=== PATIENT | female | born 1955 | race Caucasian/White ===

== ENCOUNTER 2020-06-29 09:38 | Outpatient (REF) | payer OTHER, SELFPAY ==
--- NOTE | ~2020-06-29 | MM_ITS ---
EXAMINATION: MM SCREENING DIGITAL BREAST TOMOSYNTHESIS, BILATERAL CLINICAL INFORMATION: Screening. Asymptomatic. The lifetime risk of breast cancer based on the Tyrer-Cuzick Model is 8%. COMPARISON: Mammography: 04/07/2019, 04/04/2018, 08/22/2015 TECHNIQUE: Digital breast tomosynthesis is performed in both the craniocaudal and mediolateral oblique views along with computer-aided detection (CAD). Synthesized 2D images are generated from the tomosynthesis. FINDINGS: The breasts are almost entirely fatty (ACR BI-RADS breast composition Category a). Background stromal and fibroglandular densities are stable. There is no developing density. There are no significant masses, abnormal calcifications, or other abnormalities. MM/MM tomosynthesis screening BI IMPRESSION: No mammographic evidence of malignancy. ASSESSMENT: BI-RADS 1: Negative RECOMMENDATION: Routine annual mammography screening. This patient's information was entered into a reminder system with a target due date for their next mammogram.
== END 2020-06-29 09:39 | disposition home or self-care (01) ==
LOC: HO.MAMMO 09:38
PROVIDERS: PCP Internal Medicine; Visit Provider Internal Medicine
DX: Z12.31 Encounter for screening mammogram for malignant neoplasm of breast (principal)
CPT/HCPCS: 77063; 77067

== ENCOUNTER 2021-03-25 12:58 | Emergency (ER) | payer OTHER, SELFPAY ==
--- NOTE | 2021-03-25 | ECG_ITS ---
Test Reason : CHEST PAIN Blood Pressure : / mmHG Vent. Rate : 153 BPM Atrial Rate : 000 BPM P-R Int : 000 ms QRS Dur : 102 ms QT Int : 288 ms P-R-T Axes : 000 063 -03 degrees QTc Int : 459 ms Supraventricular tachycardia Nonspecific ST abnormality Abnormal QRS-T angle, consider primary T wave abnormality Abnormal ECG When compared with ECG of 18-DEC-2015 00:08, Vent. rate has increased BY [address] now depressed in Inferior leads ST now depressed in Anterolateral leads Inverted T waves have replaced nonspecific T wave abnormality in Inferior leads Referred By: Generic ED Physician Electronically Signed By:LIBRA WOOD MD
--- NOTE | 2021-03-25 13:24 | ED_ITS ---
HPI - Arrhythmia/Palpitations General Chief Complaint: General Medical Stated Complaint: Rapid Heart rate Time Seen by Provider: 03/25/21 13:24 Source: patient Mode of arrival: ambulatory Limitations: no limitations History of Present Illness HPI narrative: Patient noticed palpitations that started about 2.5 hours ago, she did notice some shortness of breath MD complaint: rapid heart beat Onset (ago): hour(s) Associated symptoms: shortness of breath Related Data Home Medications Medication Instructions Recorded Confirmed cholecalciferol (vitamin D3) 50 50 mcg PO DAILY 12/11/20 12/11/20 mcg (2,000 unit) capsule Previous Rx's Medication Instructions Recorded albuterol sulfate 90 mcg/actuation 2 puff PO Q6H PRN 30 Days #6.7 g 12/11/20 aerosol inhaler fluticasone 250 mcg-salmeterol 50 1 inh INHALATION Q12H 30 Days #60 12/11/20 mcg/dose blistr powdr for ea inhalation (Advair Diskus) Allergies Allergy/AdvReac Type Severity Reaction Status Date / Time acetaminophen [From TYLENOL] Allergy Unknown HIVES,NAUSEA Verified 12/11/20 09:19 & VOMITING montelukast AdvReac Unknown muscle Verified 12/11/20 09:19 cramps SOY Allergy Mild VOMITING Uncoded 06/17/20 10:09 Review of Systems Constitutional: Constitutional: Reports no additional constitutional complaints Eyes: Eyes: Reports no additional eye complaints ENT: Denies dizziness Cardiovascular: Cardiovascular: Reports no additional cardiovascular complaints Respiratory: Respiratory: Reports as per HPI Gastrointestinal: Gastrointestinal: Reports no additional gastrointestinal complaints Genitourinary: Genitourinary: Reports no additional female genitourinary complaints Musculoskeletal: Musculoskeletal: Reports no additional musculoskeletal complaints Integumentary/Breasts: Skin/Breast: Denies rash Neurologic: Reports system reviewed and no additional complaints, except as d ocumented, Denies dizziness and Denies Sensory deficit (Neuro) Psychiatric: Psychiatric: Denies anxiety PMFSH Past Medical History Medical History Asthma Surgical History History of colonoscopy History of laparoscopic cholecystectomy Family History Family History Father Bladder cancer Mother Cancer Brother In good health Sister In good health Son In good health Social History Social History Housing: House Patient Tobacco Use Status: Never used Tobacco Second Hand Smoke Exposure: No Advance Directives: No Advance Directives Information Provided: No Patient : No service: No Current occupational status: other Physical Exam Vital Signs: Vital Signs: Last Vital Signs Temp 98 F 03/25/21 13:28 Pulse 88 03/25/21 14:25 Resp 18 03/25/21 14:25 BP 146/89 H 03/25/21 14:25 Pulse Ox 98 03/25/21 14:25 BMI result Body Mass Index 32.3 Const: General: healthy appearing Nutritional Appearance: average body habitus Orientation/consciousness: oriented to person and patient oriented x3 Limitations: no limitations HENMT: Head: Yes normal to inspection Ears: external ears normal General nose exam: Normal external nose present Mouth: Normal oral and palatal mucosa present and oropharynx normal Throat: Yes posterior oropharynx normal Eyes: General: appearance normal, both eyes and all related structures Neck: Other: supple Neck: Yes normal visual inspection Chest: Chest palpation & inspection: normal inspection of the chest Resp: Auscultation: clear to auscultation bilaterally Cardio: Other: severe tachycardia Jugular venous distension: no JVD GI: Inspection: Yes normal to inspection Palpation (GI): Soft to palpation, nontender and No hepatosplenomegaly present Auscultation: normal bowel sounds : General: Yes no CVA tenderness Back/Spine/Pelvis: Back: no CVA tenderness Skin: General skin exam: no rashes or lesions noted Neuro: General: oriented to person and patient oriented x3 Cranial nerves: Yes CN's II-XII intact bilaterally Motor exam (neuro): 5/5 motor strength present throughout Sensory Exam: No Sensory deficit (Neuro) Extrem: General: Yes normal to inspection Psych: Appearance: grossly normal Course Reevaluation(s) Reevaluation #1: patient has remained stable after cardioversion, discussed use of betablocker but she would prefer not to at this time Time: 15:25 Reevaluation #2: I spent 30 minutes of critical care, with interventions, assessments, speaking to patient, consultants, and family. Time: 15:26 MDM - Arrhythmia/Palpitations Lab Data Result diagrams: 12/14/21 13:39 03/25/21 13:39 Labs: Lab Results 03/25/21 03/25/21 03/25/21 Range/Units 13:39 13:39 13:39 WBC 9.2 (4.8-10.8) X10*3/uL RBC 4.88 (4.20-5.50) X10*6/uL Hgb 14.3 (12.0-16.0) g/dl Hct 42.9 (37.0-47.0) % MCV 87.9 (80.0-98.0) fL MCH 29.3 (27.0-33.0) pg MCHC 33.3 (31.0-35.0) g/dl RDW 12.7 (11.0-16.0) % Plt Count 266 (160-400) X10*3/uL MPV 9.4 (9.4-12.3) fL Immature Gran % (Auto) 0.4 (0.0-0.4) % Neut % (Auto) 54.6 (45-73) % Lymph % (Auto) 32.1 (20-40) % [place] % (Auto) 6.7 (2-11) % Eos % (Auto) 5.7 H (0-4) % Baso % (Auto) 0.5 (0-2) % Lymph # (Auto) 2.9 (1.2-4.9) X10*3/uL [place] # (Auto) 0.6 (0.1-1.2) X10*3/uL Eos # (Auto) 0.5 H (0.0-0.4) X10*3/uL Baso # (Auto) 0.1 (0.0-0.2) X10*3/uL Abs Immat Gran (auto) 0.04 H (0.00-0.03) X10*3/uL Absolute Neuts (auto) 5.0 (2.0-8.3) x10*3/uL Absolute Nucleated RBC 0.000 (0.0-0.012) X10*3/uL Nucleated RBC % (auto) 0.0 (0.0-0.2) /100WBC Sodium 141 (135-145) mmol/L Potassium 3.8 (3.3-5.1) mmol/L Chloride 102 (96-108) mmol/L Carbon Dioxide 29 (22-29) mmol/L Anion Gap 14 (12-20) BUN 18 H (9-16) mg/dL Creatinine 1.04 (0.5-1.4) mg/dL Estim Creat Clear Calc 62.8 Estimated GFR 54 Random Glucose 126 H (60-115) mg/dL Calcium 9.7 (8.4-10.2) mg/dL Troponin I High Sens 9.9 (<3.5-17.0) ng/L TSH 1.02 (0.32-4.0) uIU/mL Procedures Procedure Narrative Procedure Narrative: cardioversion with adenosine Discharge Plan Discharge Clinical Impression: Supraventricular tachycardia Patient Disposition: Home, Self-Care Instructions: Supraventricular Tachycardia (ED) Prescriptions: No Action cholecalciferol (vitamin D3) 50 mcg (2,000 unit) capsule 50 mcg PO DAILY RF: 0 fluticasone propion-salmeterol [Advair Diskus] 250-50 mcg/dose blister with device 1 inh inhalation Q12H 30 Days Qty: 60 RF: 2 albuterol sulfate 90 mcg/actuation HFA aerosol inhaler 2 puff PO Q6H PRN (Reason: shortness of breath or wheezing) 30 Days Qty: 6.7 RF: 2 Referrals: Vern Acuna, SOUND TECHNICIAN-BC [Primary Care Provider] - 5 days
--- NOTE | 2021-03-25 13:26 | ECG_ITS ---
Test Reason : SVT Blood Pressure : / mmHG Vent. Rate : 087 BPM Atrial Rate : 087 BPM P-R Int : 150 ms QRS Dur : 088 ms QT Int : 350 ms P-R-T Axes : 069 050 017 degrees QTc Int : 421 ms Normal sinus rhythm Normal ECG When compared with ECG of 25-MAR-2021 13:09, Normal sinus rhythm has replaced Supraventricular tachycardia Vent. rate has decreased BY [address] no longer depressed in Anterolateral leads T wave inversion less evident in Inferior leads Referred By: Aniket Cortez Electronically Signed By:LIBRA WOOD MD
[2021-03-25 13:28] VITALS: BP 184/86; PULSE 167; RESP 20; TEMP 36.6; O2SAT 98; BMI 32.3
[2021-03-25 13:44] LABS: MANUAL DIFF FLAG NO
[2021-03-25 13:47] VITALS: BP 168/94; PULSE 90
[2021-03-25] MEDS: Metoprolol Tartrate 5 MG/5 ML VIAL IVPUSH (13:47)
--- NOTE | 2021-03-25 13:48 | PC.NURSE ---
PT TO BED AFTER EKG IN WAITING ROOM. DR SOUZA TO BEDSIDE. PT AWAKE, ALERT AND ORIENTED X 3. NEUROS INTACT. SKIN PINK WARM AND DRY. RESP UNLABORED. SVT 160S-180S. DENIES CP/SOB. PLAN IS FOR ADENOSINE. IV PLACED, EKG OBTAINED, PLACED ON GALLERY DIRECTOR. MEDICATED WITH ADENOSINE ORDERED. LOPRESSOR IV GIVEN. DR SOUZA AWARE OF HR OF 98. PROCEED WITH LOPRESSOR ORDERED. PT RESPONDED TO LOPRESSOR, HR 88 - NSR
[2021-03-25 13:49] LABS: Basophils Absolute Auto 0.1 X10*3/uL (0.0-0.2); Basophils Percent Auto 0.5 % (0-2); Eosinophils Absolute Auto 0.5 X10*3/uL (0.0-0.4); Eosinophils Percent Auto 5.7 % (0-4); Hematocrit 42.9 % (37.0-47.0); Hemoglobin 14.3 g/dl (12.0-16.0); Imm Gran Abs Auto 0.04 X10*3/uL (0.00-0.03); Imm Gran Pct Auto 0.4 % (0.0-0.4); Lymphocytes Absolute Auto 2.9 X10*3/uL (1.2-4.9); Lymphocytes Percent Auto 32.1 % (20-40); Mean Corpuscular HGB Conc 33.3 g/dl (31.0-35.0); Mean Corpuscular Hemoglobin 29.3 pg (27.0-33.0); Mean Corpuscular Volume 87.9 fL (80.0-98.0); Mean Platelet Volume 9.4 fL (9.4-12.3); Monocytes Absolute Auto 0.6 X10*3/uL (0.1-1.2); Monocytes Percent Auto 6.7 % (2-11); Neutrophils Percent Auto 54.6 % (45-73); Platelet Count 266 X10*3/uL (160-400); Red Blood Count 4.88 X10*6/uL (4.20-5.50); Red Cell Distribution Width 12.7 % (11.0-16.0); White Blood Count 9.2 X10*3/uL (4.8-10.8)
[2021-03-25 14:01] LABS: Anion Gap 14 (12-20); Blood Urea Nitrogen 18 mg/dL (9-16); Calcium 9.7 mg/dL (8.4-10.2); Carbon Dioxide 29 mmol/L (22-29); Chloride 102 mmol/L (96-108); Creatinine Clr Calc Pharmacy 62.8; Estimated Glomerular Filt Rate 54; Glucose Random 126 mg/dL (60-115); Potassium 3.8 mmol/L (3.3-5.1); Sodium 141 mmol/L (135-145)
[2021-03-25 14:08] LABS: Troponin-I High Sensitivity 9.9 ng/L (<3.5-17.0)
[2021-03-25 14:24] LABS: TSH reflex Free T4 1.02 uIU/mL (0.32-4.0)
[2021-03-25 14:25] VITALS: BP 146/89; PULSE 88; RESP 18; O2SAT 98
[2021-03-25 15:50] VITALS: BP 147/82; PULSE 87; RESP 16; O2SAT 97
== END 2021-03-25 15:56 | disposition home or self-care (01) ==
PROVIDERS: Emergency Provider Emergency Medicine; PCP Nurse Practitioner Family
DX: I47.1 Supraventricular tachycardia (principal); R06.02 Shortness of breath; J45.909 Unspecified asthma, uncomplicated
CPT/HCPCS: 36415; 80048; 84443; 84484; 85025; 93005; 96374; 96375; 99284; J0153

== ENCOUNTER 2021-07-01 09:19 | Outpatient (REF) | payer OTHER, SELFPAY ==
--- NOTE | ~2021-07-01 | MM_ITS ---
EXAMINATION: MM SCREENING DIGITAL BREAST TOMOSYNTHESIS, BILATERAL CLINICAL INFORMATION: Screening. Asymptomatic. The lifetime risk of breast cancer based on the Tyrer-Cuzick Model is 4%. COMPARISON: Mammography: June 29, 2020 and studies dating back to March 12, 2000 TECHNIQUE: Digital breast tomosynthesis is performed in both the craniocaudal and mediolateral oblique views along with computer-aided detection (CAD). Synthesized 2D images are generated from the tomosynthesis. FINDINGS: The breasts are almost entirely fatty (ACR BI-RADS breast composition Category a). There are no significant masses, abnormal calcifications, or other abnormalities. MM/MM tomosynthesis screening BI IMPRESSION: There are no significant changes from prior study. ASSESSMENT: BI-RADS 1: Negative RECOMMENDATION: Routine annual mammography screening. This patient's information was entered into a reminder system with a target due date for their next mammogram.
== END 2021-07-01 09:20 | disposition home or self-care (01) ==
LOC: HO.MAMMO 09:19
PROVIDERS: PCP Nurse Practitioner Family; Visit Provider Internal Medicine
DX: Z12.31 Encounter for screening mammogram for malignant neoplasm of breast (principal)
CPT/HCPCS: 77063; 77067

== ENCOUNTER 2021-07-25 12:52 | Outpatient (REF) | payer OTHER, SELFPAY ==
--- NOTE | ~2021-07-25 | MM_ITS ---
EXAMINATION: BONE DENSITOMETRY CLINICAL INDICATION: History of osteopenia. Other specified disorders of bone density and structure. Postmenopausal. COMPARISON: Baseline BD dated 03/24/2018. TECHNIQUE: Using a [employer] DXA System (software version: 13.1) manufactured by [employer], dual-energy x-ray absorptiometry was performed of the lumbar spine and left hip. The images are of good technical quality. Summary results are attached. FINDINGS: AP SPINE L1-L4: Current: BMD 1.476 g/cm2, Z-score 2.9, T-score 2.5, normal, 4.5% increase from baseline (<5% change is not significant). Baseline: BMD 1.413 g/cm2. LEFT FEMUR, NECK: Current: BMD 0.892 g/cm2, Z-score -0.3, T-score -1.0, normal. Baseline: BMD 0.853 g/cm2. LEFT FEMUR, TOTAL: Current: BMD 1.011 g/cm2, Z-score 0.4, T-score 0.0, normal, 1.9% increase from baseline (<5% change is not significant). Baseline: BMD 0.992 g/cm2. IDENTIFIED RISK FACTORS: Menopause. HISTORY OF FRACTURE: None listed. MEDICATIONS: Vitamin D. MM/XR DEXA axial skeleton IMPRESSION: 1. DIAGNOSIS: Normal bone density based on the lowest T-score value of -1.0 in the femoral neck applying World Health Organization criteria. 2. 10-YEAR FRACTURE RISK PREDICTION, FRAX: According to the guidelines, FRAX calculation should only be performed on patients in the osteopenia bone density category. Therefore, FRAX was not performed on this patient. 3. Treatment Recommendations: NOF guidelines recommend consideration for treatment in postmenopausal women and men age 50 and older presenting with the following: -A hip or vertebral (clinical or morphometric) fracture. -T-score less than or equal to -2.5 at the femoral neck or spine after appropriate evaluation to exclude secondary causes. -Low bone mass at the hip or spine and a 10-year fracture probability by FRAX of greater than or equal to 3% for hip fracture or greater than or equal to 20% for major osteoporotic fracture based on the [place] adapted WHO algorithm. 4. Other Recommendations: All treatment decisions require clinical judgment and consideration of individual patient factors, including patient preferences, comorbidities, previous drug use, risk factors not captured in the FRAX model (e.g. frailty, falls, vitamin D deficiency, increased bone turnover, interval significant decline in bone density) and possible under or overestimation of fracture risk by FRAX. FUTURE SCAN RECOMMENDATION: People with diagnosed cases of osteoporosis or at high risk for fracture should have regular bone mineral density tests. For patients eligible for Medicare, routine testing is allowed once every 2 years. The testing frequency can be increased to one year for patients who have rapidly progressing disease, those who are receiving or discontinuing medical therapy to restore bone mass, or have additional risk factors.
== END 2021-07-25 12:53 | disposition home or self-care (01) ==
LOC: HO.MAMMO 12:52
PROVIDERS: Visit Provider Nurse Practitioner Family
DX: Z13.820 Encounter for screening for osteoporosis (principal); Z78.0 Asymptomatic menopausal state
CPT/HCPCS: 77080

== ENCOUNTER 2021-10-27 10:39 | Outpatient (REF) | payer OTHER, SELFPAY ==
[2021-10-31 09:07] LABS: HPV mRNA E6/E7 rflx Not Detected (Not Detected)
== END 2021-10-27 10:40 | disposition home or self-care (01) ==
LOC: HO.LAB 10:39
PROVIDERS: Visit Provider Advanced Practice Midwife
DX: Z01.419 Encounter for gynecological examination (general) (routine) without abnormal findings (principal); Z11.51 Encounter for screening for human papillomavirus (HPV)
CPT/HCPCS: 87624; 88142

== ENCOUNTER 2021-11-20 09:19 | Outpatient (REF) | payer OTHER, SELFPAY | END 2021-11-20 09:20 | disposition home or self-care (01) | LOC: HO.LAB 09:19 | PROVIDERS: PCP Nurse Practitioner Family; Visit Provider Obstetrics & Gynecology | DX: N88.9 Noninflammatory disorder of cervix uteri, unspecified (principal) | CPT/HCPCS: 57454; 88305 ==

== ENCOUNTER 2022-07-07 09:15 | Outpatient (REF) | payer OTHER, SELFPAY ==
--- NOTE | ~2022-07-07 | MM_ITS ---
EXAMINATION: MM SCREENING DIGITAL BREAST TOMOSYNTHESIS, BILATERAL CLINICAL INFORMATION: Screening. Asymptomatic. The lifetime risk of breast cancer based on the Tyrer-Cuzick Model is 6.9%. COMPARISON: Mammography: July 01, 2021 and studies dating back to March 12, 2014 TECHNIQUE: Digital breast tomosynthesis is performed in both the craniocaudal and mediolateral oblique views along with computer-aided detection (CAD). Synthesized 2D images are generated from the tomosynthesis. FINDINGS: The breasts are almost entirely fatty (ACR BI-RADS breast composition Category a). There are no significant masses, abnormal calcifications, or other abnormalities. MM/MM tomosynthesis screening BI IMPRESSION: No significant changes ASSESSMENT: BI-RADS 1: Negative RECOMMENDATION: Routine annual mammography screening. This patient's information was entered into a reminder system with a target due date for their next mammogram.
== END 2022-07-07 09:16 | disposition home or self-care (01) ==
LOC: HO.MAMMO 09:15
PROVIDERS: PCP Nurse Practitioner Family; Visit Provider Nurse Practitioner Family
DX: Z12.31 Encounter for screening mammogram for malignant neoplasm of breast (principal)
CPT/HCPCS: 77063; 77067

== ENCOUNTER 2022-12-01 10:38 | Outpatient (AMB) | payer OTHER, SELFPAY ==
--- NOTE | 2022-12-01 10:50 | MHC.OFFVIS ---
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 Scribed for ALLEY Rouse by Jayna Belle medical corps officer, on 12/01/2022 at 11:08 am EST. Transformer Assembly Supervisor Required: No Information Interpreted: non-clinical & clinical Licensed Pesticide Applicator: Licensed Pesticide Applicator Present ([place]) Allergies acetaminophen [From TYLENOL] Allergy (Unknown, Verified 12/01/22 10:54) HIVES,NAUSEA & VOMITING montelukast Adverse Reaction (Unknown, Verified 12/01/22 10:54) muscle cramps SOY Allergy (Mild, Uncoded 12/01/22 10:54) VOMITING Is last menstrual period known: No Post menopausal: Yes Patient : No HPI HPI Comments History of Present Illness Details She is a postmenopausal woman presenting for annual exam. Doing well with no tube backer concerns. Patient admits she tries to eat a healthy diet including Calcium and Vitamin D. She stays active with exercise. Currently sexually active. Denies vaginal itching and irritation. STD screening offered; she accepts. Denies family hx of breast, colon and ovarian cancer. Last pap smear 10/27/21. Last mammogram 07/07/22 UTD on colonoscopy. [facility] Medical History Asthma Supraventricular tachycardia White coat syndrome with high blood pressure but without hypertension Surgical History H/O cervical polypectomy History of colonoscopy History of laparoscopic cholecystectomy Family History Father Bladder cancer Mother No problems noted. 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 Current occupational exposures/hazards: No Cognitive needs: No Hearing needs: No Vision needs: No Female Reproductive History Menstrual Age of Menarche: 13 control method: none Total pregnancies: 3 Full term: 3 Number of Living Children: 3 Date of last pap smear: 10/27/21 (neg pap and hpv) Date of Mammogram: 07/07/22 ([facility] 1) Physical Exam Vital Signs: Last Vital Signs BP 132/82 12/01/22 10:51 BMI result Body Mass Index 31.6 Const General: cooperative, healthy appearing, no acute distress, well developed and alert Orientation/consciousness: patient oriented x3 HEENT Head: Yes normal to inspection Eyes General: appearance normal, both eyes and all related structures Neck Neck: Yes normal visual inspection Thyroid: Thyroid normal Chest Chest palpation & inspection: normal inspection of the chest Breast/axilla inspection: normal inspection of the breasts (no puckering, dimpling, peau de orange, retraction, discharge, masses) Breast/axilla palpation: normal palpation of the breasts Resp Effort & Inspection: normal respiratory effort GI Inspection: Yes normal to inspection Palpation (GI): Soft to palpation (to palpation) Rectal Exam - Female: deferred General: Yes bladder normal to inspection External Female Exam: normal external appearance and normal appearance of the urethra Speculum Exam - Vagina: normal appearance of the vagina, normal palpation and normal vaginal discharge Speculum Exam - Cervix: normal appearance of the cervix and normal palpation Bimanual exam- vagina & uterus: normal palpation and normal palpation Bimanual Exam- Adnexa, other: normal adnexae and no masses Skin General skin exam: no rashes or lesions noted Neuro General: patient oriented x3 Cognition (Neuro): normal cognition Extrem General: Yes normal to inspection Psych Attitude: cooperative Thought process: Normal thought process present Assessment & Plan Assessment & Plan (1) Encounter for well woman exam: Code(s): Z01.419 - Encounter for gynecological examination (general) (routine) without abnormal findings Plan: Discussed: Current recommendations for pap smears per ASCCP guidelines. Breast awareness and periodic self breast exams. Encouraged yearly mammograms. Maintaining a healthy lifestyle including a well balanced diet including Calcium and Vitamin D and routine exercise. Contact office with any PMB. All of her questions and concerns were addressed to the best of my ability RTO in 1 year for AG. Coding Level of Care Code Est Pt Prev Care >65y(23076) Diagnoses Encounter for well woman exam Z01.419
[2022-12-01 10:51] VITALS: BP 132/82; BMI 31.6
== END 2022-12-01 11:19 | disposition home or self-care (01) ==
LOC: HO.HWS 10:38
PROVIDERS: PCP Nurse Practitioner Family; Visit Provider Advanced Practice Midwife
DX: Z01.419 Encounter for gynecological examination (general) (routine) without abnormal findings (principal)
CPT/HCPCS: 99397

== ENCOUNTER → 2022-12-01 10:38 | Outpatient (BNVA) | payer OTHER, MEDICARE, SELFPAY | PROVIDERS: PCP Nurse Practitioner Family; Visit Provider Advanced Practice Midwife ==

== ENCOUNTER 2023-04-07 10:19 | Outpatient (AMB) | payer OTHER, SELFPAY ==
--- NOTE | 2023-04-07 10:20 | MHC.PC.OV ---
Vital Signs 04/07/23 10:23 04/07/23 11:27 Height 5 ft 6 in Weight 195 lb BMI 31.5 BP 140/82 H 128/70 Blood Pressure Location Rt brachial Position Sitting Pulse 81 Pulse Source Pulse Oximeter Pulse Oximetry (%) 98 Oxygen Delivery Method Room Air Intake Visit Reasons: routine annual physical Intake Note: Patient here for physical exam. no new issues or concerns. Mammo is booked for some time next month. last pap: 09/2022 at [facility] Allergies acetaminophen [From TYLENOL] Allergy (Unknown, Verified 04/07/23 10:23) HIVES,NAUSEA & VOMITING montelukast Adverse Reaction (Unknown, Verified 04/07/23 10:23) muscle cramps SOY Allergy (Mild, Uncoded 04/07/23 10:23) VOMITING Medication List - Last Reconciled 04/07/23 by KEITH Arreguin-TRISHA albuterol sulfate 90 mcg/actuation 2 puffs PO Q6H PRN 30 days cholecalciferol (vitamin D3) 50 mcg PO DAILY magnesium 250 mg PO DAILY Tobacco use date assessed: 04/07/23 Fall risk assessment: No Falls in past year Last assessed Fall Risk: 04/07/23 Dental Screening Dental Screen Date: 04/07/23 Did you have a dental visit in the last 12 months?: Yes Did you have a dental problem in the last 6 months where you did not have access to dental care?: No Was dental information given to patient?: Patient has dentist HPI routine annual physical HPI Details Pt is here for a PE. Will order labs. Colon screen is up to date. Mammo is up to date. 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 Bone density is up to date. COUNTS INCLUDE 234 BEDS AT THE [facility] Medical History Asthma Supraventricular tachycardia White coat syndrome with high blood pressure but without hypertension Surgical History H/O cervical polypectomy History of colonoscopy History of laparoscopic cholecystectomy Family History Father Bladder cancer Mother No problems noted. 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 How often do you have a drink containing alcohol?: Never 3. How often do you have six or more drinks on one occasion?: Never Total Score: 0 Score Reviewed/Action Taken: No RICHARD-7 AMB Questionnaire RICHARD-7 Date RICHARD - 7 assessed: 06/24/21 Source: Developed by Drs. Prem Dinh, Luba Ahmadi, Vin Hurd and colleagues, with an educational adore from [employer]. Review of Systems Const Denies chills and Denies fever(s) Eyes Denies blurry vision ENT Denies vertigo, Denies dizziness and Denies sore throat Card Denies chest pain at rest, Denies chest pain with activity, Denies diaphoresis, Denies dyspnea and Denies dyspnea on exertion Resp Denies cough, Denies dyspnea, Denies dyspnea on exertion and Denies wheezing GI Denies abdominal pain, Denies melena, Denies hematochezia, Denies constipation, Denies diarrhea and Denies loose stools Denies hematuria Musc Denies numbness and Denies tingling Skin/Breast Denies lesions Neuro Denies vertigo, Denies dizziness, Denies numbness and Denies tingling Psych Denies anxiety, Denies depression, Denies homicidal ideation, Denies suicidal ideation and Denies other (substance abuse) Aller/Immun Denies wheezing Physical exam (Primary Care) Vital Signs: Last Vital Signs Pulse 81 04/07/23 10:23 BP 140/82 H 04/07/23 10:23 Pulse Ox 98 04/07/23 10:23 Oxygen Delivery Method Room Air 04/07/23 10:23 BMI result Body Mass Index 31.5 Tobacco/Smoking Status: Tobacco use Status Tobacco use date assessed 04/07/23 04/07/23 10:26 Patient Tobacco Use Status Never used Tobacco 04/07/23 10:23 Thrive Assessment: Date of Thrive Assessment Date Thrive assessed 06/24/21 04/07/23 10:23 Const General: cooperative Nutritional Appearance: well nourished Orientation/consciousness: patient oriented x3 HENMT Head: Yes normal to inspection, Yes normocephalic and Yes atraumatic Ears: TM's normal bilaterally Eyes General: appearance normal, both eyes and all related structures Alignment and Position: alignment normal and position normal Neck Neck: Yes normal visual inspection and Yes no lymphadenopathy Thyroid: Thyroid normal Resp Effort & Inspection: normal respiratory effort Auscultation: clear to auscultation bilaterally Cardio Rate: regular rate Rhythm: regular rhythm Heart sounds: S1 normal heart sound present, S2 normal heart sound present and no murmurs GI Palpation (GI): Soft to palpation and nontender Auscultation: normal bowel sounds Skin Rashes: no rashes Neuro General: patient oriented x3, moves all extremities, no focal motor deficits and deep tendon reflexes 2+ bilaterally Romberg Test: Negative Psych Appearance: grossly normal Mental Status: mental status grossly normal Speech and movement: Normal speech and movement present Affect: normal affect Attitude: cooperative Thought process: Normal thought process present Thought content: Normal thought content present Insight: Good insight present (Psych) Judgement: Good judgement present (Psych) Assessment and Plan Assessment & Plan (1) Physical exam: Code(s): Z00.00 - Encounter for general adult medical examination without abnormal findings Plan: Labs ordered (2) Vitamin D deficiency: Code(s): E55.9 - Vitamin D deficiency, unspecified Plan: Labs ordered Plan The patient agreed to the use of a bilingual medical receptionist for this encounter. Scribed for DEBBIE Cuellar by Jessie Nichols bilingual medical receptionist, on 04/07/2023 at 10:40 EST. Orders: Orders Complete Blood Count Auto Diff Today Z00.00 - Encounter for general adult medical examination without abnormal findings Comprehensive [place]. Panel Fast Today Z00.00 - Encounter for general adult medical examination without abnormal findings Lipid Panel Today Z00.00 - Encounter for general adult medical examination without abnormal findings Vitamin D 25-OH Total Today E55.9 - Vitamin D deficiency, unspecified TSH reflex Free T4 Today Z00.00 - Encounter for general adult medical examination without abnormal findings UA CC w/rflx Micro + Cult Today Z00.00 - Encounter for general adult medical examination without abnormal findings Medications: Refilled albuterol sulfate 90 mcg/actuation 2 puffs PO Q6H 30 days PRN 6.7 grams 3RF shortness of breath or wheezing J30.89 - Other allergic rhinitis, R06.2 - Wheezing, Z76.0 - Encounter for issue of repeat prescription Coding Level of Care Code Est Pt Prev Care >65y(24020) Diagnoses Physical exam Z00.00 Vitamin D deficiency E55.9
[2023-04-07 10:23] VITALS: BP 140/82; PULSE 81; O2SAT 98; BMI 31.5
[2023-04-07 11:27] VITALS: BP 128/70
== END 2023-04-07 10:53 | disposition home or self-care (01) ==
PROVIDERS: PCP Nurse Practitioner Family; Visit Provider Nurse Practitioner Family
DX: Z00.00 Encounter for general adult medical examination without abnormal findings (principal); E55.9 Vitamin D deficiency, unspecified
CPT/HCPCS: 99397

== ENCOUNTER 2023-09-30 08:53 | Outpatient (REF) | payer MEDICARE, SELFPAY | END 2023-09-30 08:54 | disposition home or self-care (01) | LOC: HO.MAMMO 08:53 | PROVIDERS: PCP Nurse Practitioner Family; Visit Provider Nurse Practitioner Family | DX: Z12.31 Encounter for screening mammogram for malignant neoplasm of breast (principal) | CPT/HCPCS: 77063; 77067 ==

== ENCOUNTER → 2023-09-30 09:15 | Outpatient (BNV) | payer MEDICARE, SELFPAY | PROVIDERS: PCP Nurse Practitioner Family; Visit Provider Radiology Diagnostic Radiology | DX: Z12.31 Encounter for screening mammogram for malignant neoplasm of breast (principal) | CPT/HCPCS: 77063; 77067 ==

== ENCOUNTER 2023-11-01 12:21 | Outpatient (AMB) | payer MEDICARE, SELFPAY ==
--- NOTE | 2023-11-01 12:22 | MHC.OFFWIV ---
Intake Vital Signs 11/01/23 12:23 Height 5 ft 6 in Weight 200 lb BMI 32.3 BP 134/86 Blood Pressure Location Rt brachial Position Sitting Pulse 88 Pulse Source Pulse Oximeter Temp 98.4 F Temp Source Oral Pulse Oximetry (%) 98 Oxygen Delivery Method Room Air Intake Visit Reasons: EP bladder infection Intake Note: pt here c/o urinary urgency, pressure, fevers. Started evening Patient Tobacco Use Status: Never used Tobacco Allergies acetaminophen [From TYLENOL] Allergy (Unknown, Verified 11/01/23 12:23) HIVES,NAUSEA & VOMITING montelukast Adverse Reaction (Unknown, Verified 11/01/23 12:23) muscle cramps SOY Allergy (Mild, Uncoded 11/01/23 12:23) VOMITING Do you need a note to return to daycare/school/sports/work: No HPI HPI Comments History of Present Illness Details Patient is a 68-year-old female complaining of 4 days of a pressure on her bladder. She states she also had a fever of 100.4F last evening. She denies any burning with urination or increase in frequency or urgency, or blood in her urine. She states she has never had a urinary tract infection before. She denies a history of kidney stones. [facility] Medical History Asthma Supraventricular tachycardia White coat syndrome with high blood pressure but without hypertension Surgical History H/O cervical polypectomy History of colonoscopy History of laparoscopic cholecystectomy Family History Father Bladder cancer Mother No problems noted. 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 Current occupational exposures/hazards: No Cognitive needs: No Hearing needs: No Vision needs: No Female Reproductive History Menstrual Age of Menarche: 13 Review of Systems Const All systems reviewed & are unremarkable except as noted in HPI and below Physical Exam Vital Signs: Last Vital Signs Temp 98.4 F 11/01/23 12:23 Pulse 88 11/01/23 12:23 BP 134/86 11/01/23 12:23 Pulse Ox 98 11/01/23 12:23 Oxygen Delivery Method Room Air 11/01/23 12:23 BMI result Body Mass Index 32.3 Const General: cooperative, healthy appearing, comfortable, no acute distress and well developed Orientation/consciousness: patient oriented x3 Limitations: no limitations HEENT Head: Yes normal to inspection Eyes General: appearance normal, both eyes and all related structures Neck Neck: Yes normal visual inspection and Yes full ROM Resp Effort & Inspection: normal respiratory effort and able to speak in complete sentences GI Inspection: Yes normal to inspection Palpation (GI): Soft to palpation and Tenderness to palpation present (GI) suprapubicly Skin General skin exam: no rashes or lesions noted Neuro General: patient oriented x3 Extrem General: Yes normal to inspection Results AMB Urinalysis, Automated UA Leukoctes 70 [place]/uL Last Edit by Jose Macdonald CMA on 11/01/23 12:36 UA Nitrite Negative Last Edit by Jose Macdonald CMA on 11/01/23 12:36 UA Urobilinogen 0.2 mg/dL Last Edit by Jose Macdonald CMA on 11/01/23 12:36 UA Protein 0 mg/dL Last Edit by Jose Macdonald CMA on 11/01/23 12:36 UA pH 6.0 Last Edit by Jose Macdonald CMA on 11/01/23 12:36 UA Blood 25 [place]/uL Last Edit by Jose Macdonald CMA on 11/01/23 12:36 UA Specific [place] 1.010 Last Edit by Jose Macdonald CMA on 11/01/23 12:36 UA Ketone Last Edit by Jose Macdonald CMA on 11/01/23 12:36 UA Bilirubin 0 mg/dL Last Edit by Jose Mcadonald CMA on 11/01/23 12:36 UA Glucose 0 mg/dL Last Edit by Jose Macdonald CMA on 11/01/23 12:36 Assessment & Plan Assessment & Plan (1) UTI (urinary tract infection): Code(s): N39.0 - Urinary tract infection, site not specified Qualifiers: Urinary tract infection type: acute cystitis Hematuria presence: with hematuria Qualified Code(s): N30.01 - Acute cystitis with hematuria Plan: UA positive for leukocyte esterase and blood. Sent antibiotic to pharmacy, did explain she had microscopic hematuria and she wants to make sure this resolves with the infection; if she ever sees blood in her urine she should follow up with her PCP. Plan See above Orders: Orders AMB Urinalysis Automated Today Z13.9 - Encounter for screening, unspecified Medications: New cefuroxime axetil 500 mg PO Q12H 10 tabs 0RF Coding Level of Care Code Est Pt Level 3 (27587) Diagnoses Acute cystitis with hematuria N30.01 Urinary tract infection type: acute cystitis Hematuria presence: with hematuria
[2023-11-01 12:23] VITALS: BP 134/86; PULSE 88; TEMP 36.9; O2SAT 98; BMI 32.3
== END 2023-11-01 12:43 | disposition home or self-care (01) ==
PROVIDERS: PCP Nurse Practitioner Family; Visit Provider Physician Assistant
DX: Z13.9 Encounter for screening, unspecified (principal); N30.01 Acute cystitis with hematuria
CPT/HCPCS: 81003; 99213

== ENCOUNTER 2023-11-01 13:18 | Outpatient (REF) | payer MEDICARE, SELFPAY | END 2023-11-01 13:19 | disposition home or self-care (01) | LOC: HO.LAB 13:18 | PROVIDERS: Visit Provider Physician Assistant | DX: N30.01 Acute cystitis with hematuria (principal) | CPT/HCPCS: 87086 ==

== ENCOUNTER 2024-10-05 09:30 | Outpatient (REF) | payer MEDICARE, SELFPAY | END 2024-10-05 09:31 | disposition home or self-care (01) | LOC: HO.MAMMO 09:30 | PROVIDERS: PCP Nurse Practitioner Family; Visit Provider Nurse Practitioner Family | DX: Z12.31 Encounter for screening mammogram for malignant neoplasm of breast (principal) | CPT/HCPCS: 77063; 77067 ==

== ENCOUNTER → 2024-10-05 09:45 | Outpatient (BNV) | payer MEDICARE, SELFPAY | PROVIDERS: PCP Nurse Practitioner Family; Visit Provider Internal Medicine | DX: Z12.31 Encounter for screening mammogram for malignant neoplasm of breast (principal) | CPT/HCPCS: 77063; 77067 ==

== ENCOUNTER 2025-01-04 10:15 | Outpatient (AMB) | payer MEDICARE, SELFPAY ==
[2025-01-04 10:19] VITALS: BP 142/80; PULSE 81; TEMP 36.3; O2SAT 97; BMI 33.1
--- NOTE | 2025-01-04 10:19 | AM.OFFWIN_ITS ---
Intake Vital Signs 01/04/25 10:19 Height 5 ft 6 in Weight 205 lb BMI 33.1 BP 142/80 H Blood Pressure Location Lt brachial Position Sitting Pulse 81 Pulse Source Pulse Oximeter Temp 97.4 F Temp Source Oral Pulse Oximetry (%) 97 Oxygen Delivery Method Room Air Intake Visit Reasons: EP-uti Intake Note: pt presents with low abdominal pain for 3 days Patient Tobacco Use Status: Never used Tobacco Allergies acetaminophen (From TYLENOL) Allergy (Unknown, Verified 01/04/25 10:27) HIVES,NAUSEA & VOMITING montelukast Adverse Reaction (Unknown, Verified 01/04/25 10:27) muscle cramps SOY Allergy (Mild, Uncoded 11/01/23 12:23) VOMITING Do you need a note to return to daycare/school/sports/work: No HPI HPI Comments History of Present Illness Details 69 y/o Female patient who presents to [facility] walk [facility] clinic with c/o Lower abdominal Cramping for 2 days now. Denies Urinary or vaginal symptoms. Reports that Pain is located at Suprapubic region. Denies Fevers, chills, Nausea or vomiting. Denies constipation or diaarhea. [facility] Medical History (Updated 01/04/25 @ 10:47 by Desiree Cadena NP) Suprapubic abdominal pain White coat syndrome with high blood pressure but without hypertension Supraventricular tachycardia Asthma Surgical History H/O cervical polypectomy History of colonoscopy History of laparoscopic cholecystectomy Family History Father Bladder cancer Mother No problems noted. 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 Current occupational exposures/hazards: No Cognitive needs: No Hearing needs: No Vision needs: No Female Reproductive History Menstrual Age of Menarche: 13 Review of Systems Const All systems reviewed & are unremarkable except as noted in HPI and below Physical Exam Vital Signs: Last Vital Signs Temp 97.4 F 01/04/25 10:19 Pulse 81 01/04/25 10:19 BP 142/80 H 01/04/25 10:19 Pulse Ox 97 01/04/25 10:19 Oxygen Delivery Method Room Air 01/04/25 10:19 BMI result Body Mass Index 33.1 Const General: no acute distress Nutritional Appearance: obese Orientation/consciousness: patient oriented x3 GI Inspection: Yes obesity Palpation (GI): Soft to palpation, not firm, Tenderness to palpation present (GI) suprapubicly, no guarding, not rigid and No hepatosplenomegaly present Auscultation: normal bowel sounds General: Yes no CVA tenderness Back/Spine/Pelvis Back: no CVA tenderness Neuro General: patient oriented x3, gait normal and moves all extremities Psych Speech and movement: Normal speech and movement present Assessment & Plan Assessment & Plan (1) Suprapubic abdominal pain: Code(s): R10.2 - Pelvic and perineal pain Plan: Urinalysis Negative today. Advised to hydrate with plenty of fluids. May take Acetaminophen or NSAIDs for pain relief Advised to use AZO for symptom relief. RTC if symptoms do not improve. Orders: Orders AMB Urinalysis Automated Today Z13.9 - Encounter for screening, unspecified Coding Level of Care Code Est Pt Level 4 (47646) Diagnoses Suprapubic abdominal pain R10.2 Time Spent (min) 20
== END 2025-01-04 11:03 | disposition home or self-care (01) ==
PROVIDERS: PCP Nurse Practitioner Family; Visit Provider Nurse Practitioner Family
DX: R10.2 Pelvic and perineal pain (principal); Z13.9 Encounter for screening, unspecified

== ENCOUNTER → 2025-01-04 10:15 | Outpatient (BNVA) | payer MEDICARE, SELFPAY | PROVIDERS: PCP Nurse Practitioner Family; Visit Provider Nurse Practitioner Family | DX: R10.2 Pelvic and perineal pain (principal) | CPT/HCPCS: 81003; 99212 ==

== ENCOUNTER 2025-01-24 11:23 | Outpatient (REF) | payer MEDICARE, SELFPAY | END 2025-01-24 11:24 | disposition home or self-care (01) | LOC: HO.LNP 11:23 | PROVIDERS: PCP Nurse Practitioner Family; Visit Provider Physician Assistant Medical | DX: R30.0 Dysuria (principal); Z13.89 Encounter for screening for other disorder | CPT/HCPCS: 81003; 87086; 99212 ==

== ENCOUNTER 2025-01-24 11:23 | Outpatient (AMB) | payer MEDICARE, SELFPAY ==
--- NOTE | 2025-01-24 12:11 | AM.OFFWIN_ITS ---
Intake Vital Signs 01/24/25 12:12 Height 5 ft 6 in Weight 204 lb BMI 32.9 BP 152/90 H Blood Pressure Location Lt brachial Position Sitting Pulse 67 Pulse Source Pulse Oximeter Temp 97.9 F Temp Source Oral Pulse Oximetry (%) 98 Oxygen Delivery Method Room Air Intake Visit Reasons: ep possible uti Patient Tobacco Use Status: Never used Tobacco Allergies acetaminophen (From TYLENOL) Allergy (Unknown, Verified 01/04/25 10:27) HIVES,NAUSEA & VOMITING soy Adverse Reaction (Mild, Verified 01/24/25 12:14) Vomiting montelukast Adverse Reaction (Unknown, Verified 01/04/25 10:27) muscle cramps Do you need a note to return to daycare/school/sports/work: No HPI HPI Comments History of Present Illness Details History - The patient is a 69-year-old female pr esenting with symptoms suggestive of a urinary tract infection. - She reports experiencing pain, burning sensation, and urinary frequency, which have worsened since her last visit two weeks ago. - [facility]. - She states that the symptoms have talha en worse. - She has lower abd pressure and burning . - She has urinary frequency as well. - A home test conducted today was positi ve for a urinary tract infection. - She denies experiencing fever, chills, back pain, or hematuria. - The patient has a history of a urinary tract infection last summer. - She denies fever, chills, back pain, h ematuria, vaginal discharge or itching. Physical Exam General: Cooperative, healthy appearing, comfortable, no acute distress and well developed Cardiac: Normal S1 and S2. RRR, no M/R/G noted. Respiratory: Normal respiratory effort and able to speak in complete sentences. Clear to auscultation bilaterally. No w/r/r noted. Skin: No rashes or lesions noted. GI: Normal inspection. Normal BS noted. Soft, non-tender, non-distended. No TTP of all 4 quadrants. No guarding or rebound tenderness noted. Back: Negative CVA bilaterally Patient was informed and verbally consented to the use of an ambient scribe for clinic note documentation during this visit. [facility] Medical History (Updated 01/04/25 @ 10:47 by Desiree K W Ndissi, TOP STITCHER) Suprapubic abdominal pain White coat syndrome with high blood pressure but without hypertension Supraventricular tachycardia Asthma Surgical History H/O cervical polypectomy History of colonoscopy History of laparoscopic cholecystectomy Family History Father Bladder cancer Mother No problems noted. 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 Current occupational exposures/hazards: No Cognitive needs: No Hearing needs: No Vision needs: No Female Reproductive History Menstrual Age of Menarche: 13 Review of Systems Const All systems reviewed & are unremarkable except as noted in HPI and below Physical Exam Vital Signs: Last Vital Signs Temp 97.9 F 01/24/25 12:12 Pulse 67 01/24/25 12:12 BP 152/90 H 01/24/25 12:12 Pulse Ox 98 01/24/25 12:12 Oxygen Delivery Method Room Air 01/24/25 12:12 BMI result Body Mass Index 32.9 Results AMB Urinalysis, Automated UA Leukoctes 15 [place]/uL Last Edit by Phu Babin CMA on 01/24/25 13:04 UA Nitrite Negative Last Edit by Phu Babin CMA on 01/24/25 13:04 UA Urobilinogen 0.2 mg/dL Last Edit by Phu Babin CMA on 01/24/25 13 :04 UA Protein 0 mg/dL Last Edit by Phu Babin CMA on 01/24/25 13:04 UA pH 6.0 Last Edit by Phu Babin CMA on 01/24/25 13:04 UA Blood 0 [place]an/uL Last Edit by Phu Babin CMA on 01/24/25 13:04 UA Specific [place] 1.020 Last Edit by Phu Babin CMA on 01/24/25 13:04 UA Ketone Negative Last Edit by Phu Babin CMA on 01/24/25 13:04 UA Bilirubin 0 mg/dL Last Edit by Phu Babin CMA on 01/24/25 13:04 UA Glucose 0 mg/dL Last Edit by Phu Babin CMA on 01/24/25 13:04 Assessment & Plan Assessment & Plan (1) Dysuria: Code(s): R30.0 - Dysuria Plan Most likely early UTI UA +leuko Plan - drink lots of fluids - tylenol or motrin as needed for pain or fever - Initiate antibiotic therapy due to symptomatic urinary tract infection. - Send urine culture to identify specific bacteria and adjust antibiotics if necessary. - Prescribe phenazopyridine for symptomatic relief of bladder pain and spasms, with a warning about urine discoloration. Orders: Orders Urine Culture Today N39.0 - Urinary tract infection, site not specified AMB Urinalysis Automated Today Z13.9 - Encounter for screening, unspecified Medications: New phenazopyridine 100 mg PO tid PRN 6 tabs 0RF Pain cefuroxime axetil 500 mg PO Q12H 10 tabs 0RF Coding Level of Care Code Est Pt Level 3 (67409) Diagnoses Dysuria R30.0
[2025-01-24 12:12] VITALS: BP 152/90; PULSE 67; TEMP 36.6; O2SAT 98; BMI 32.9
== END 2025-01-24 12:57 | disposition home or self-care (01) ==
PROVIDERS: PCP Nurse Practitioner Family; Visit Provider Physician Assistant Medical
DX: R30.0 Dysuria (principal); Z13.9 Encounter for screening, unspecified